=== PATIENT | male | born 1975 | race Caucasian/White ===

== ENCOUNTER 2016-07-13 07:10 | Emergency (ER) | payer SELFPAY ==
[~2016-07-13] VITALS: Ht 170.2 cm; Wt 90.0 kg
[~2016-07-13 07:10] MED LIST: [UNRECOGNIZED DRUG - OTHER]
[2016-07-13 07:16] VITALS: BP 143/87; PULSE 91; RESP 20; TEMP 98.3; O2SAT 92; O2SAT 94
[2016-07-13] MEDS ORDERED: methylPREDNISolone SOD SUCC 125 MG/2 ML VIAL IM ONE (07:30)
--- NOTE | 2016-07-13 07:42 | PD ---
HPI Chief Complaint: Cold / Flu Symptoms Time Seen by Provider: 07:34 Travel History International Travel<30 days: No Contact w/Intl Traveler<30days: No Traveled to known affect area: No History of Present Illness HPI 41 year old male presents to the emergency room for evaluation of cough, congestions, chills, bodyaches, sore throat, and shortness of breath for the past 3 days. Patient states it has been ongoing for the past week or so but it didn't worsen until 3 days ago. He is concerned because his mother was just hospitalized for pneumonia. Patient has been taking DayQuil without relief in symptoms. Patient has history of asthma and feels as though he is having an asthma exacerbation/difficulty breathing. States it feels like his typical asthma exacerbation. He does not have an inhaler at home. He smokes a pack of cigarettes per day and marijuana multiple times daily. PFSH Past Medical History Hx Anticoagulant Therapy: No Arthritis: Yes Asthma: Yes Anxiety: Yes (meds a year or so ago) Depression: No Cancer: No Cardiovascular Problems: No COPD: No Cerebrovascular Accident: No Diabetes: No Endocrine: No GERD: Yes Genitourinary: No Hiatal Hernia: No Immune Disorder: No Musculoskeletal: Yes Neurologic: Yes (this admit) Psychiatric: Yes Reproductive: No Respiratory: Yes Migraines: No Seizures: No Sickle Cell Disease: No Sleep Apnea: No Ulcer: No Past Surgical History Abdominal Surgery: No Cardiac Surgery: No Endocrine Surgery: No Eye Surgery: No Genitourinary Surgery: No Oral Surgery: No Thoracic Surgery: No Social History Alcohol Use: No Tobacco Use: Yes (1 PPD) Substance Use: Yes (Patient states he uses "everything" but denies IVDA, cocaine last at midnig) Allergies-Medications (Allergen,Severity, Reaction): Coded Allergies: Theophylline (Verified Allergy, Severe, 07/13/16) Penicillin (Verified Allergy, Unknown, 07/13/16) Reported Meds & Prescriptions Reported Meds & Active Scripts Active Ventolin Hfa 18 GM Inh (Albuterol Sulfate) 90 Mcg/Act Aer 2 Puff INH Q6H PRN Prednisone 20 Mg Tab 40 Mg PO DAILY 5 Days Review of Systems Except as stated in HPI: all other systems reviewed are Neg Physical Exam Narrative GENERAL: Well-nourished, well-developed male in no acute distress. Afebrile. Ambulatory. SKIN: Warm and dry. HEAD: Normocephalic. EYES: No scleral icterus. No injection or drainage. ENT: Mucosa pink and moist. Very mild erythema without exudates. No uvular edema. No uvular, palatal, or tonsillar deviation. Airway patent. EARS: Bilateral pinnae and external canals appear within normal limits. Bilateral tympanic membranes without erythema, dullness or perforation. NECK: Supple, trachea midline. No JVD or lymphadenopathy. CARDIOVASCULAR: Regular rate and rhythm without murmurs, gallops, or rubs. RESPIRATORY: Breath sounds equal bilaterally. No accessory muscle use. Bilateral inspiratory and expiratory wheezes and rales. Data Data Last Documented VS Vital Signs Date Time Temp Pulse Resp B/P Pulse Ox O2 Delivery O2 Flow Rate FiO2 07/13/16 07:25 16 07/13/16 07:16 98.3 91 143/87 94 Orders Chest, Pa & Lat (07/13/16 07:28) Methylprednisolone So Succ Inj (Solumedr (07/13/16 07:30) Albuterol-Ipratropium Neb (Duoneb Neb) (07/13/16 07:30) MDM Medical Decision Making Medical Screen Exam Complete: Yes Emergency Medical Condition: Yes Medical Record Reviewed: Yes Differential Diagnosis Asthma exacerbation versus upper respiratory infection versus influenza versus pneumonia versus bronchitis versus COPD exacerbation Narrative Course 41-year-old male with history of asthma presents to the emergency room for evaluation of cold and flu symptoms for the past week that worsened 3 days ago. Patient is afebrile and well-appearing in the emergency room. Resting comfortably in bed. Physical exam reveals inspiratory and expiratory wheezes and rales bilaterally, otherwise unremarkable. Vital signs stable. Patient is 94% on room air before breathing treatments. He was given 3 breathing treatments and 125 IM Solu-Medrol the emergency room. After breathing treatments, patient feels better and lung sounds are much clearer with little to no wheezing. Pulse ox remains around 94%. Chest x-ray is negative. Patient likely has viral bronchitis. Discharged with prednisone and albuterol inhaler and told to follow up with primary care physician or return to the emergency room for worsening symptoms. He understands and agrees to this plan. Diagnosis Primary Impression: Acute bronchitis Qualified Code: J20.9 - Acute bronchitis, unspecified organism Additional Impression: Asthma Qualified Code: J45.21 - Mild intermittent asthma with acute exacerbation Referrals: Primary Care Physician Patient Instructions: Acute Bronchitis (ED), General Instructions Additional Instructions: Rest and drink plenty of fluids. Use inhaler as directed, as needed for shortness of breath. Take prednisone as directed, until gone. Start tomorrow. Stop smoking as it will worsen your symptoms. Take ibuprofen with food as directed, as needed for pain. Follow-up with a primary care physician. Return to the emergency room for worsening symptoms. Med/Other Pt SpecificInfo: Prescription(s) given Scripts Albuterol 18 GM Inh (Ventolin Hfa 18 GM Inh)90 Mcg/Act Aer2 Puff INH Q6H PRN ( SHORTNESS OF BREATH) #1 INHALER Ref 0 Prov:Monica Ingram MD 07/13/16 Prednisone 20 Mg Tab40 Mg PO DAILY 5 Days Ref 0 Prov:Monica Ingram MD 07/13/16 Disposition: 01 DISCHARGE HOME Condition: Stable Norma Vargas Jul 13, 2016 07:42
--- NOTE | 2016-07-13 07:51 | RADRPT ---
EXAM DATE/TIME: 07/13/2016 07:51 [facility] COMPARISON: CHEST SINGLE AP, January 22, 2016, 12:43. INDICATIONS : Cough. MEDICAL HISTORY : asthma. SURGICAL HISTORY : None. ENCOUNTER: Initial ACUITY: 3 days PAIN SCORE: 2/10 LOCATION: Bilateral chest FINDINGS: PA and lateral views of the chest demonstrate the lungs to be symmetrically aerated without evidence of mass, infiltrate or effusion. The cardiomediastinal contours are unremarkable. Osseous structure s are intact. CONCLUSION: Normal examination. Wu Samayoa MD on July 13, 2016 at 7:50 Board Certified Radiologist. This report was verified electronically.
[2016-07-13] MEDS: RESP: ALBUTEROL 2.5 MG/IPRATROPIUM 0.5 MG NEB (SCH) INH (07:56)
[2016-07-13] MEDS ORDERED: PRED20 PO (08:07)
[2016-07-13] MEDS ORDERED: VENTAER INH (08:07)
== END 2016-07-13 08:44 | disposition home or self-care (01) ==
LOC: NEPB 07:10
DX: J20.9 Acute bronchitis, unspecified (principal); J45.21 Mild intermittent asthma with (acute) exacerbation; F17.200 Nicotine dependence, unspecified, uncomplicated; K21.9 Gastro-esophageal reflux disease without esophagitis; Z87.39 Personal history of other diseases of the musculoskeletal system and connective tissue; Z86.69 Personal history of other diseases of the nervous system and sense organs; Z86.59 Personal history of other mental and behavioral disorders
CPT/HCPCS: 71020; 94664; 96372; 99283; J2930